=== PATIENT | male | born 1985 | race Two or more races ===

== ENCOUNTER 2016-03-14 07:54 | Emergency (ER) | payer SELFPAY ==
[~2016-03-14] VITALS: Ht 185.4 cm; Wt 65.8 kg
[2016-03-14 08:02] VITALS: BP 128/73
[2016-03-14] MEDS ORDERED: IBUPROFEN 400 MG TABLET ONE (08:16)
[2016-03-14] MEDS: IBUPROFEN 400 MG TABLET PO ONE (08:24)
== END 2016-03-14 08:27 | disposition home or self-care (01) ==
LOC: ER 07:58
DX: J11.1 Influenza due to unidentified influenza virus with other respiratory manifestations (principal); F10.20 Alcohol dependence, uncomplicated
CPT/HCPCS: 99283; A4606; Z7610